=== PATIENT | female | born 1995 | race Caucasian/White ===

== ENCOUNTER → 2021-04-08 | Outpatient (CLI) | payer OTHER ==
[~2021-04-08] MED LIST: COLACE 100MG C100 MG PO
== END ==
LOC: LAB 17:27
DX: O20.0 Threatened abortion (principal)
CPT/HCPCS: 84702

== ENCOUNTER 2021-09-08 06:30 | Outpatient (CLI) | payer OTHER | END 2021-09-08 09:04 | disposition home or self-care (01) | LOC: GENOP 06:30 | DX: O36.8120 Decreased fetal movements, second trimester, not applicable or unspecified (principal); Z87.891 Personal history of nicotine dependence; Z91.040 Latex allergy status; Z3A.27 27 weeks gestation of pregnancy | CPT/HCPCS: 81001; G0463 ==

== ENCOUNTER 2021-09-26 16:03 | Outpatient (CLI) | payer OTHER ==
[2021-09-26 16:47] LABS: HEMOGLOBIN 11.7 gm/dl (12.3-15.3); RED BLOOD COUNT 3.88 M/UL (4.00-5.10); WHITE BLOOD COUNT 15.3 K/UL (4.5-11.0)
== END 2021-09-26 23:51 | disposition home or self-care (01) ==
LOC: GENOP 16:03
PROVIDERS: Obstetrics & Gynecology
DX: O47.03 False labor before 37 completed weeks of gestation, third trimester (principal); Z87.891 Personal history of nicotine dependence; Z91.040 Latex allergy status; Z3A.30 30 weeks gestation of pregnancy
CPT/HCPCS: 36415; 81001; 85025; 96360; 96361; 96372; J3105

== ENCOUNTER 2021-09-29 09:55 | Outpatient (CLI) | payer OTHER | END 2021-09-29 12:03 | disposition home or self-care (01) | LOC: GENOP 09:55 | DX: O36.8130 Decreased fetal movements, third trimester, not applicable or unspecified (principal); N89.8 Other specified noninflammatory disorders of vagina; O99.013 Anemia complicating pregnancy, third trimester; O99.353 Diseases of the nervous system complicating pregnancy, third trimester; O99.891 Other specified diseases and conditions complicating pregnancy; D64.9 Anemia, unspecified; M54.9 Dorsalgia, unspecified; G43.909 Migraine, unspecified, not intractable, without status migrainosus; Z3A.30 30 weeks gestation of pregnancy | CPT/HCPCS: 81001; 83518; G0463 ==

== ENCOUNTER 2021-10-09 12:18 | Outpatient (CLI) | payer OTHER ==
[~2021-10-09 12:18] MED LIST changes: +DIFLUCAN150 MG PO; +MACROBID 100 M100 M1 PO
== END 2021-10-09 18:18 | disposition home or self-care (01) ==
LOC: GENOP 12:18
DX: O36.8130 Decreased fetal movements, third trimester, not applicable or unspecified (principal); O99.013 Anemia complicating pregnancy, third trimester; D64.9 Anemia, unspecified; O99.353 Diseases of the nervous system complicating pregnancy, third trimester; G43.909 Migraine, unspecified, not intractable, without status migrainosus; Z3A.30 30 weeks gestation of pregnancy; Z87.59 Personal history of other complications of pregnancy, childbirth and the puerperium
CPT/HCPCS: G0463

== ENCOUNTER 2021-11-01 12:51 | Outpatient (CLI) | payer OTHER ==
[2021-11-01 13:29] LABS: HEMOGLOBIN 12.7 gm/dl (12.3-15.3); RED BLOOD COUNT 4.34 M/UL (4.00-5.10); WHITE BLOOD COUNT 13.5 K/UL (4.5-11.0)
== END 2021-11-02 10:44 | disposition other institution (70) ==
LOC: GENOP 12:51
PROVIDERS: Obstetrics & Gynecology
DX: O47.03 False labor before 37 completed weeks of gestation, third trimester (principal); O36.8130 Decreased fetal movements, third trimester, not applicable or unspecified; O09.293 Supervision of pregnancy with other poor reproductive or obstetric history, third trimester; O28.8 Other abnormal findings on antenatal screening of mother; Z91.040 Latex allergy status; Z87.891 Personal history of nicotine dependence; Z3A.34 34 weeks gestation of pregnancy
CPT/HCPCS: 85025; J7120

== ENCOUNTER 2021-11-14 17:46 | Inpatient (IN) | payer OTHER ==
[~2021-11-14] VITALS: Ht 160 cm; Wt 84.8 kg
[2021-11-14 19:32] LABS: HEMOGLOBIN 11.1 gm/dl (12.3-15.3); RED BLOOD COUNT 3.87 M/UL (4.00-5.10); WHITE BLOOD COUNT 10.2 K/UL (4.5-11.0)
[2021-11-15] MEDS ORDERED: DOCUSATE SODIU100 MG PO (10:47)
[2021-11-15] MEDS ORDERED: IBUPROFEN600 MG PO (10:47)
[2021-11-16 04:53] LABS: HEMOGLOBIN 10.3 gm/dl (12.3-15.3)
== END 2021-11-16 14:50 | disposition home or self-care (01) | DRG 805 ==
LOC: GENOP 17:46 → OB 18:43
PROVIDERS: ADMIT Obstetrics & Gynecology
PROC: 4A1HXCZ Monitoring of Products of Conception, Cardiac Rate, External Approach (ICD-10-PCS; 2021-11-14)
PROC: 10E0XZZ Delivery of Products of Conception, External Approach (ICD-10-PCS; principal; 2021-11-15)
PROC: 10907ZC Drainage of Amniotic Fluid, Therapeutic from Products of Conception, Via Natural or Artificial Opening (ICD-10-PCS; 2021-11-15)
PROC: 0HQ9XZZ Repair Perineum Skin, External Approach (ICD-10-PCS; 2021-11-15)
DX: O99.354 Diseases of the nervous system complicating childbirth (principal); U07.1 COVID-19; Z37.0 Single live birth; O98.52 Other viral diseases complicating childbirth; G43.909 Migraine, unspecified, not intractable, without status migrainosus; Z3A.36 36 weeks gestation of pregnancy; Z91.040 Latex allergy status; O99.334 Smoking (tobacco) complicating childbirth; F17.210 Nicotine dependence, cigarettes, uncomplicated; O99.344 Other mental disorders complicating childbirth; F41.9 Anxiety disorder, unspecified; O70.0 First degree perineal laceration during delivery
CPT/HCPCS: 36415; 81001; 82800; 83518; 85014; 85018; 85025; 90715; J2210; J2590; U0002